=== PATIENT | female | born 1995 | race Caucasian/White ===

== ENCOUNTER 2018-08-03 20:15 | Emergency (ER) | payer OTHER ==
[2018-08-03 20:23] VITALS: BP 129/83
[2018-08-03] MEDS ORDERED: ACYCLOVIR 200 MG CAPSULE PO ONE (20:46)
--- NOTE | 2018-08-03 20:51 | ER Document Report ---
ED Medical Screen (RME) - General Chief Complaint: Allergic Reaction Stated Complaint: POSSIBLE ALLERGIC REACTION Time Seen by Provider: 08/03/18 20:28 TRAVEL OUTSIDE OF THE [place] IN LAST 30 DAYS: No - Related Data Allergies/Adverse Reactions: No Known Allergies Allergy (Unverified 07/29/16 07:29) Past Medical History - Social History Chew tobacco use (# tins/day): No Frequency of alcohol use: None Drug Abuse: None Renal/ Medical History: Denies: Hx Peritoneal Dialysis Physical Exam - Vital signs Vitals: Temp Pulse Resp BP Pulse Ox 98.5 F 74 17 129/83 H 94 08/03/18 20:19 08/03/18 20:19 08/03/18 20:19 08/03/18 20:19 08/03/18 20:19 Course - Vital Signs Vital signs: Temp Pulse Resp BP Pulse Ox 98.5 F 74 17 129/83 H 94 08/03/18 20:19 08/03/18 20:19 08/03/18 20:19 08/03/18 20:19 08/03/18 20:19 Doctor's Discharge - Discharge Clinical Impression: Herpes simplex labialis Condition: Stable Disposition: HOME, SELF-CARE Additional Instructions: Herpes Simplex You have been diagnosed as having a herpes virus infection. The herpes ( "cold sore") virus usually infects the areas around the mouth. However, it can cause infection on any skin surface. It's particularly dangerous if infection occurs in the eye. On the initial infection, herpes blisters erupt over a large area. There is usually fever and aching. This infection takes about 14 days to resolve. After the initial infection, herpes sores can erupt on small areas (usually the lips), then heal in about a week. Sunburn, fever, local irritation, or even emotions can provoke a "fever blister" attack of herpes. Initial herpes infections can be treated with medication if severe. Subsequent attacks are usually given only local care to reduce symptoms; however , the physician may decide to prescribe anti-viral medication if your case warrants it. Call the doctor if you are worsening in any way. Take medication as prescribed. Follow-up with your [facility]IST doctor next week if not improving. RETURN TO THE EMERGENCY ROOM IF ANY NEW OR WORSENING SYMPTOMS. Prescriptions: Acyclovir [Acyclovir 400 mg Tablet] 400 mg PO 5XD #25 tablet
--- NOTE | 2018-08-03 20:57 | ER Document Report ---
ED General - General Chief Complaint: Allergic Reaction Stated Complaint: POSSIBLE ALLERGIC REACTION Time Seen by Provider: 08/03/18 20:28 Mode of Arrival: Ambulatory Information source: Patient, [facility] Records Notes: This 23-year-old female patient comes emergency room complaining of swelling to the left lower lip with some soreness deep in her throat that started a few hours ago. Patient was seen here on 07/29/2016 with probable herpes simplex virus infection in the same spot. She is currently 17 weeks . TRAVEL OUTSIDE OF THE [place] IN LAST 30 DAYS: No - Related Data Allergies/Adverse Reactions: No Known Allergies Allergy (Unverified 07/29/16 07:29) Past Medical History - General Information source: Patient, [facility] Records - Social History Smoking Status: Never Smoker Cigarette use (# per day): No Chew tobacco use (# tins/day): No Smoking Education Provided: No Frequency of alcohol use: None Drug Abuse: None Occupation: Surgical Scheduler Lives with: Friend Family History: Reviewed & Not Pertinent Patient has suicidal ideation: No Patient has homicidal ideation: No - Past Medical History Cardiac Medical History: Reports: None Pulmonary Medical History: Reports: None Neurological Medical History: Reports: None Endocrine Medical History: Reports: None Renal/ Medical History: Reports: None GI Medical History: Reports: None Musculoskeletal Medical History: Reports None Skin Medical History: Reports Other - HSV labialis Psychiatric Medical History: Reports: None Traumatic Medical History: Reports: None Infectious Medical History: Reports: Other - HSV labialis Surgical Hx: Negative Review of Systems - Review of Systems Constitutional: No symptoms reported EENT: See HPI Cardiovascular: No symptoms reported Respiratory: No symptoms reported Gastrointestinal: No symptoms reported Genitourinary: No symptoms reported Female Genitourinary: - 17 weeks Musculoskeletal: No symptoms reported Skin: No symptoms reported Hematologic/Lymphatic: No symptoms reported Neurological/Psychological: No symptoms reported Physical Exam - Vital signs Vitals: Temp Pulse Resp BP Pulse Ox 98.5 F 74 17 129/83 H 94 08/03/18 20:19 08/03/18 20:19 08/03/18 20:19 08/03/18 20:19 08/03/18 20:19 Interpretation: Normal - General General appearance: Appears well, Alert In distress: None - HEENT Head: Normocephalic, Atraumatic Eyes: Normal Pupils: PERRL Mouth/Lips: Other - Left lower lip is very swollen area with what appeared to be vesicle starting to develop at the inferior aspect of the swelling just below the vermilion border. The entire labial lip transversely across the top is dry, scaling and starting to crack. This includes the areas that are not part of the swollen region around the presumed HSV recurrence. Pharynx: Normal - Respiratory Respiratory status: No respiratory distress - Cardiovascular Rhythm: Regular - Abdominal Inspection: Gravid female - Back Back: Normal - Extremities General upper extremity: Normal inspection General lower extremity: Normal inspection - Neurological Neuro grossly intact: Yes - Psychological Associated symptoms: Normal affect, Normal mood - Skin Skin Temperature: Warm Skin Moisture: Dry Skin Color: Normal Course - Vital Signs Vital signs: Temp Pulse Resp BP Pulse Ox 98.5 F 74 17 129/83 H 94 08/03/18 20:19 08/03/18 20:19 08/03/18 20:19 08/03/18 20:19 08/03/18 20:19 Discharge - Discharge Clinical Impression: Herpes simplex labialis Condition: Stable Disposition: HOME, SELF-CARE Additional Instructions: Herpes Simplex You have been diagnosed as having a herpes virus infection. The herpes ( "cold sore") virus usually infects the areas around the mouth. However, it can cause infection on any skin surface. It's particularly dangerous if infection occurs in the eye. On the initial infection, herpes blisters erupt over a large area. There is usually fever and aching. This infection takes about 14 days to resolve. After the initial infection, herpes sores can erupt on small areas (usually the lips), then heal in about a week. Sunburn, fever, local irritation, or even emotions can provoke a "fever blister" attack of herpes. Initial herpes infections can be treated with medication if severe. Subsequent attacks are usually given only local care to reduce symptoms; however , the physician may decide to prescribe anti-viral medication if your case warrants it. Call the doctor if you are worsening in any way. Take medication as prescribed. Follow-up with your DIGITAL ADVISOR doctor next week if not improving. RETURN TO THE EMERGENCY ROOM IF ANY NEW OR WORSENING SYMPTOMS. Prescriptions: Acyclovir [Acyclovir 400 mg Tablet] 400 mg PO 5XD #25 tablet
== END 2018-08-03 21:00 | disposition home or self-care (01) ==
LOC: ER 20:15
DX: O98.312 Other infections with a predominantly sexual mode of transmission complicating pregnancy, second trimester (principal); B00.1 Herpesviral vesicular dermatitis; O26.892 Other specified pregnancy related conditions, second trimester; T78.40XA Allergy, unspecified, initial encounter; Z3A.17 17 weeks gestation of pregnancy
CPT/HCPCS: 99283